=== PATIENT | male | born 1960 | race Caucasian/White ===

== ENCOUNTER → 2022-06-09 | Outpatient (CLI) | payer SELFPAY ==
[2022-06-09 09:44] LABS: BASO # 0.03 K/mm3 (0.02-0.10); EOS # 0.08 K/mm3 (0.04-0.40); EOS % 1.1 % (0.0-4.0); HEMOGLOBIN 16.2 g/dL (13.5-18.0); LYMPH# 1.43 K/mm3 (1.50-4.00); MEAN CELL VOLUME 99 fl (78-100); MEAN CORPUSCULAR HEMOGLOBIN 34 pg (27-31); MEAN CORPUSCULAR HGB CONC 35 g/dL (33-37); MEAN PLATELET VOLUME 10.1 fl (7.4-10.4); MONO # 0.74 K/mm3 (0.20-0.80); NEU # 5.29 K/mm3 (1.40-6.50); PLATELET COUNT 238 K/mm3 (130-400); RED BLOOD COUNT 4.76 M/mm3 (4.20-5.60); RED CELL DISTRIBUTION WIDTH 14.2 % (11.5-14.5); WHITE BLOOD COUNT 7.6 K/mm3 (4.8-10.8)
[2022-06-09 09:48] LABS: POTASSIUM 5.4 mmol/L (3.5-5.1)
[2022-06-09 09:49] LABS: ALBUMIN 4.5 g/dL (3.4-4.8)
[2022-06-09 09:50] LABS: CALCIUM 10.1 mg/dL (8.3-10.5)
[2022-06-09 09:51] LABS: TOTAL PROTEIN 7.7 g/dL (6.2-8.1)
[2022-06-09 09:53] LABS: TOTAL BILIRUBIN 0.9 mg/dL (0.2-1.2)
== END ==
LOC: LAB 08:28
PROVIDERS: Nurse Practitioner
DX: Z76.89 Persons encountering health services in other specified circumstances (principal); K21.9 Gastro-esophageal reflux disease without esophagitis; I10 Essential (primary) hypertension; F10.20 Alcohol dependence, uncomplicated

== ENCOUNTER 2022-12-14 09:48 | Emergency (ER) | payer SELFPAY ==
[~2022-12-14] VITALS: Ht 175.3 cm; Wt 79.1 kg
[2022-12-14 10:12] LABS: BASO # 0.03 K/mm3 (0.02-0.10); EOS # 0.09 K/mm3 (0.04-0.40); EOS % 1.6 % (0.0-4.0); HEMOGLOBIN 16.1 g/dL (13.5-18.0); LYMPH# 2.18 K/mm3 (1.50-4.00); MEAN CELL VOLUME 101 fl (78-100); MEAN CORPUSCULAR HEMOGLOBIN 34 pg (27-31); MEAN CORPUSCULAR HGB CONC 34 g/dL (33-37); MEAN PLATELET VOLUME 8.6 fl (7.4-10.4); MONO # 0.74 K/mm3 (0.20-0.80); NEU # 2.69 K/mm3 (1.40-6.50); PLATELET COUNT 172 K/mm3 (130-400); RED BLOOD COUNT 4.75 M/mm3 (4.20-5.60); RED CELL DISTRIBUTION WIDTH 14.3 % (11.5-14.5); WHITE BLOOD COUNT 5.7 K/mm3 (4.8-10.8)
[2022-12-14 10:19] LABS: ALBUMIN 3.5 g/dL (3.4-4.8); POTASSIUM 3.6 mmol/L (3.5-5.1); SODIUM 142 mmol/L (136-145)
[2022-12-14 10:20] LABS: CALCIUM 8.5 mg/dL (8.3-10.5)
[2022-12-14 10:21] LABS: GLUCOSE 104 mg/dL (75-110)
[2022-12-14 10:22] LABS: CARBON DIOXIDE 22 mmol/L (23-31); TOTAL PROTEIN 7.2 g/dL (6.2-8.1)
[2022-12-14 10:23] LABS: TOTAL BILIRUBIN 0.8 mg/dL (0.2-1.2)
[2022-12-14 10:24] LABS: ALCOHOL IN-HOUSE 293 mg/dL (<10)
[2022-12-14 10:27] LABS: AST-SGOT 74 U/L (5-34)
[2022-12-14 10:28] LABS: ALT/SGPT 31 U/L (0-55)
[2022-12-14 10:29] LABS: LIPASE 32 U/L (8-78)
[2022-12-14 10:43] LABS: TROPONIN-I < 0.030 ng/mL (<0.030)
[2022-12-14] MEDS ORDERED: MULTIVITAMIN1 EACH PO (10:47)
[2022-12-14] MEDS ORDERED: LISINOPRIL20 MG PO (10:47)
[2022-12-14] MEDS ORDERED: TOPCARE OMEPRAZ20 MG PO ×2 (10:47→10:48)
[2022-12-14] MEDS ORDERED: FOLIC ACID1 MG PO (10:47)
[2022-12-14] MEDS ORDERED: PROTONIX20 M1 PO (10:48)
[2022-12-14] MEDS ORDERED: THIAMINE HCL100 M1 PO (10:49)
[2022-12-14 11:25] LABS: PROTHROMBIN TIME 11.3 SECONDS (9.0-12.0)
[2022-12-14 12:40] LABS: URINE APPEARANCE CLEAR; URINE BILIRUBIN NEGATIVE (NEGATIVE); URINE BLOOD NEGATIVE (NEGATIVE); URINE COLOR YELLOW; URINE GLUCOSE NEGATIVE (NEGATIVE); URINE KETONE NEGATIVE (NEGATIVE); URINE LEUKOCYTE ESTERASE NEGATIVE (NEGATIVE); URINE NITRATE NEGATIVE (NEGATIVE); URINE PROTEIN(semi-quant) NEGATIVE (NEGATIVE); URINE UROBILINOGEN NORMAL (NORMAL)
[2022-12-14 12:42] LABS: URINE WBC 0-1 /hpf (0-3)
[2022-12-14 15:58] VITALS: BP 116/99
== END 2022-12-14 15:55 | disposition short-term general hospital (02) ==
LOC: ED 09:48
PROVIDERS: Nurse Practitioner
DX: S00.81XA Abrasion of other part of head, initial encounter (principal); I82.402 Acute embolism and thrombosis of unspecified deep veins of left lower extremity; F10.129 Alcohol abuse with intoxication, unspecified; I27.82 Chronic pulmonary embolism; K76.0 Fatty (change of) liver, not elsewhere classified; Z20.822 Contact with and (suspected) exposure to COVID-19; Y90.8 Blood alcohol level of 240 mg/100 ml or more; W19.XXXA Unspecified fall, initial encounter; W22.8XXA Striking against or struck by other objects, initial encounter
CPT/HCPCS: J1644; J2060; J2405; J7030; Q9967

== ENCOUNTER → 2023-01-11 | Outpatient (CLI) | payer SELFPAY ==
[~2023-01-11] MED LIST: FOLIC ACID1 MG PO; LISINOPRIL20 MG PO; MULTIVITAMIN1 EACH PO; PROTONIX20 M1 PO; THIAMINE HCL100 M1 PO; TOPCARE OMEPRAZ20 MG PO
[2023-01-11 12:58] LABS: BASO # 0.05 K/mm3 (0.02-0.10); EOS # 0.27 K/mm3 (0.04-0.40); EOS % 2.8 % (0.0-4.0); HEMATOCRIT 45.9 % (42.0-52.0); HEMOGLOBIN 14.8 g/dL (13.5-18.0); LYMPH# 2.82 K/mm3 (1.50-4.00); MEAN CELL VOLUME 101 fl (78-100); MEAN CORPUSCULAR HEMOGLOBIN 33 pg (27-31); MEAN CORPUSCULAR HGB CONC 32 g/dL (33-37); MEAN PLATELET VOLUME 9.8 fl (7.4-10.4); MONO # 0.93 K/mm3 (0.20-0.80); NEU # 5.56 K/mm3 (1.40-6.50); PLATELET COUNT 366 K/mm3 (130-400); RED BLOOD COUNT 4.56 M/mm3 (4.20-5.60); RED CELL DISTRIBUTION WIDTH 14.1 % (11.5-14.5); WHITE BLOOD COUNT 9.6 K/mm3 (4.8-10.8)
== END ==
LOC: LAB 12:08
PROVIDERS: Nurse Practitioner
DX: Z79.01 Long term (current) use of anticoagulants (principal)

== ENCOUNTER → 2023-02-13 | Outpatient (CLI) | payer SELFPAY | LOC: LAB 11:20 | DX: F10.10 Alcohol abuse, uncomplicated (principal) ==

== ENCOUNTER → 2023-03-07 | Outpatient (CLI) | payer SELFPAY ==
[2023-03-07 14:20] LABS: PROTHROMBIN TIME 12.7 SECONDS (9.0-12.0)
== END ==
LOC: LAB 13:46
PROVIDERS: Family Medicine
DX: Z79.01 Long term (current) use of anticoagulants (principal)

== ENCOUNTER → 2023-03-09 | Outpatient (CLI) | payer SELFPAY ==
[2023-03-09 11:30] LABS: BASO # 0.04 K/mm3 (0.02-0.10); EOS # 0.31 K/mm3 (0.04-0.40); EOS % 3.5 % (0.0-4.0); HEMATOCRIT 41.7 % (42.0-52.0); HEMOGLOBIN 13.6 g/dL (13.5-18.0); LYMPH# 2.34 K/mm3 (1.50-4.00); MEAN CELL VOLUME 94 fl (78-100); MEAN CORPUSCULAR HEMOGLOBIN 31 pg (27-31); MEAN CORPUSCULAR HGB CONC 33 g/dL (33-37); MEAN PLATELET VOLUME 9.7 fl (7.4-10.4); MONO # 0.91 K/mm3 (0.20-0.80); NEU # 5.27 K/mm3 (1.40-6.50); PLATELET COUNT 329 K/mm3 (130-400); RED BLOOD COUNT 4.42 M/mm3 (4.20-5.60); RED CELL DISTRIBUTION WIDTH 13.2 % (11.5-14.5); WHITE BLOOD COUNT 8.9 K/mm3 (4.8-10.8)
[2023-03-09 11:32] LABS: ALBUMIN 4.3 g/dL (3.4-4.8)
[2023-03-09 11:33] LABS: CALCIUM 9.8 mg/dL (8.3-10.5)
[2023-03-09 11:34] LABS: TOTAL PROTEIN 7.5 g/dL (6.2-8.1)
[2023-03-09 12:14] LABS: TOTAL BILIRUBIN 0.8 mg/dL (0.2-1.2)
== END ==
LOC: LAB 11:13
PROVIDERS: Nurse Practitioner
DX: L29.9 Pruritus, unspecified (principal)

== ENCOUNTER → 2023-03-14 | Outpatient (CLI) | payer SELFPAY ==
[2023-03-14 12:19] LABS: PROTHROMBIN TIME 14.6 SECONDS (9.0-12.0)
== END ==
LOC: LAB 11:47
PROVIDERS: Family Medicine
DX: Z79.01 Long term (current) use of anticoagulants (principal)

== ENCOUNTER → 2023-03-21 | Outpatient (CLI) | payer SELFPAY ==
[2023-03-21 13:33] LABS: PROTHROMBIN TIME 14.9 SECONDS (9.0-12.0)
== END ==
LOC: LAB 13:01
PROVIDERS: Family Medicine
DX: Z79.01 Long term (current) use of anticoagulants (principal)

== ENCOUNTER → 2023-03-29 | Outpatient (CLI) | payer SELFPAY ==
[2023-03-29 11:11] LABS: PROTHROMBIN TIME 34.6 SECONDS (9.0-12.0)
== END ==
LOC: LAB 10:46
PROVIDERS: Family Medicine
DX: Z79.01 Long term (current) use of anticoagulants (principal)

== ENCOUNTER → 2023-04-03 | Outpatient (CLI) | payer SELFPAY ==
[2023-04-03 12:01] LABS: PROTHROMBIN TIME 10.8 SECONDS (9.0-12.0)
== END ==
LOC: LAB 11:35
PROVIDERS: Family Medicine
DX: Z79.01 Long term (current) use of anticoagulants (principal)

== ENCOUNTER → 2023-07-07 | Outpatient (CLI) | payer MEDICAID ==
[2023-07-07 12:35] LABS: BASO # 0.02 K/mm3 (0.02-0.10); EOS # 0.09 K/mm3 (0.04-0.40); EOS % 1.1 % (0.0-4.0); HEMATOCRIT 42.4 % (42.0-52.0); LYMPH# 1.62 K/mm3 (1.50-4.00); MEAN CELL VOLUME 92 fl (78-100); MEAN CORPUSCULAR HEMOGLOBIN 30 pg (27-31); MEAN CORPUSCULAR HGB CONC 33 g/dL (33-37); MONO # 0.83 K/mm3 (0.20-0.80); NEU # 5.31 K/mm3 (1.40-6.50); PLATELET COUNT 220 K/mm3 (130-400); RED BLOOD COUNT 4.62 M/mm3 (4.20-5.60); RED CELL DISTRIBUTION WIDTH 16.6 % (11.5-14.5); WHITE BLOOD COUNT 7.9 K/mm3 (4.8-10.8)
[2023-07-07 12:42] LABS: ALBUMIN 3.9 g/dL (3.4-4.8); SODIUM 139 mmol/L (136-145)
[2023-07-07 12:43] LABS: CALCIUM 9.3 mg/dL (8.3-10.5)
[2023-07-07 12:44] LABS: GLUCOSE 90 mg/dL (75-110)
[2023-07-07 12:45] LABS: CARBON DIOXIDE 22 mmol/L (23-31)
[2023-07-07 12:46] LABS: TOTAL BILIRUBIN 0.7 mg/dL (0.2-1.2)
[2023-07-07 12:50] LABS: AST-SGOT 51 U/L (5-34)
[2023-07-07 12:51] LABS: ALT/SGPT 28 U/L (0-55); MAGNESIUM 2.08 mg/dL (1.60-2.60)
[2023-07-07 13:19] LABS: ALCOHOL IN-HOUSE < 10 mg/dL (<10)
[2023-07-07 22:29] LABS: FOLATE (FOLIC ACID) 16.7 ng/mL (2.0-20.0)
== END ==
LOC: LAB 12:12
PROVIDERS: Nurse Practitioner
DX: F10.10 Alcohol abuse, uncomplicated (principal); E55.9 Vitamin D deficiency, unspecified; R55 Syncope and collapse; R25.2 Cramp and spasm

== ENCOUNTER → 2023-08-23 | Outpatient (CLI) | payer MEDICAID ==
[2023-08-23 12:59] LABS: HEMATOCRIT 46.7 % (42.0-52.0); HEMOGLOBIN 16.1 g/dL (13.5-18.0); RED BLOOD COUNT 5.02 M/mm3 (4.20-5.60); RED CELL DISTRIBUTION WIDTH 13.5 % (11.5-14.5); WHITE BLOOD COUNT 6.6 K/mm3 (4.8-10.8)
[2023-08-23 13:13] LABS: ALBUMIN 4.2 g/dL (3.4-4.8)
[2023-08-23 13:14] LABS: SODIUM 140 mmol/L (136-145)
[2023-08-23 13:15] LABS: CALCIUM 9.1 mg/dL (8.3-10.5)
[2023-08-23 13:16] LABS: GLUCOSE 111 mg/dL (75-110); TOTAL PROTEIN 7.6 g/dL (6.2-8.1)
[2023-08-23 13:17] LABS: CARBON DIOXIDE 18 mmol/L (23-31)
[2023-08-23 13:18] LABS: TOTAL BILIRUBIN 1.9 mg/dL (0.2-1.2)
[2023-08-23 13:21] LABS: AST-SGOT 147 U/L (5-34)
[2023-08-23 13:23] LABS: ALT/SGPT 39 U/L (0-55)
[2023-08-23 13:29] LABS: D-DIMER 0.38 mg/L FEU (0.15-0.50); TROPONIN-I < 0.030 ng/mL (0.00-0.033)
[2023-08-23 13:59] LABS: LIPASE 70 U/L (8-78)
== END ==
LOC: AMSURD 12:24
PROVIDERS: Nurse Practitioner
DX: R07.9 Chest pain, unspecified (principal); R06.00 Dyspnea, unspecified; F10.10 Alcohol abuse, uncomplicated

== ENCOUNTER → 2023-09-06 | Outpatient (CLI) | payer MEDICAID ==
[2023-09-06 13:13] LABS: ALBUMIN 3.7 g/dL (3.4-4.8)
[2023-09-06 13:14] LABS: CALCIUM 8.9 mg/dL (8.3-10.5)
[2023-09-06 13:15] LABS: TOTAL PROTEIN 6.9 g/dL (6.2-8.1)
[2023-09-06 13:17] LABS: TOTAL BILIRUBIN 2.8 mg/dL (0.2-1.2)
== END ==
LOC: LAB 12:30
PROVIDERS: Nurse Practitioner
DX: E80.6 Other disorders of bilirubin metabolism (principal); M25.512 Pain in left shoulder; R06.09 Other forms of dyspnea

== ENCOUNTER → 2023-11-01 | Outpatient (CLI) | payer MEDICARE, MEDICAID ==
[2023-11-01 14:28] LABS: ALBUMIN 4.4 g/dL (3.4-4.8)
[2023-11-01 14:30] LABS: CALCIUM 9.7 mg/dL (8.3-10.5)
[2023-11-01 14:31] LABS: TOTAL PROTEIN 7.7 g/dL (6.2-8.1)
[2023-11-01 14:33] LABS: TOTAL BILIRUBIN 2.3 mg/dL (0.2-1.2)
== END ==
LOC: LAB 14:02
PROVIDERS: Nurse Practitioner
DX: E55.9 Vitamin D deficiency, unspecified (principal); F10.10 Alcohol abuse, uncomplicated

== ENCOUNTER 2023-11-14 08:31 | Outpatient (RCR) | payer MEDICARE, MEDICAID | END 2023-12-11 | disposition home or self-care (01) | LOC: PT | DX: M51.26 Other intervertebral disc displacement, lumbar region (principal) ==

== ENCOUNTER 2023-12-12 08:00 | Outpatient (RCR) | payer MEDICARE, MEDICAID ==
[2024-03-27] MEDS ORDERED: ATORVASTATIN CA20 MG PO (15:40)
[2024-03-27] MEDS ORDERED: PANTOPRAZOLE SO40 MG PO (15:40)
[2024-03-27] MEDS ORDERED: BREO ELLIPTA1 POW IH (15:40)
[2024-03-27] MEDS ORDERED: NORVASC 10MG10 MG PO (15:41)
[2024-03-27] MEDS ORDERED: ICOSAPENT ETHYL1 GM PO (15:41)
[2024-03-27] MEDS ORDERED: ELIQUIS5 MG PO (15:41)
== END 2024-01-11 | disposition home or self-care (01) ==
LOC: PT
DX: M51.26 Other intervertebral disc displacement, lumbar region (principal)

== ENCOUNTER 2024-03-27 19:46 | Inpatient (IN) | payer MEDICARE, MEDICAID ==
[~2024-03-27] VITALS: Ht 172.7 cm; Wt 87.6 kg
[~2024-03-27 19:46] MED LIST changes: +ATORVASTATIN CA20 MG PO; +BREO ELLIPTA1 POW IH; +ELIQUIS5 MG PO; +ICOSAPENT ETHYL1 GM PO; +NORVASC 10MG10 MG PO; +PANTOPRAZOLE SO40 MG PO
[2024-03-27] MEDS ORDERED: Acetaminophen 325 MG TAB PO PRN (21:00)
[2024-03-27] MEDS ORDERED: Naloxone 0.4 MG/ML VIAL IV PRN (21:00)
[2024-03-27] MEDS ORDERED: Docusate Sodium 100 MG CAP PO SCH (21:00)
[2024-03-27] MEDS ORDERED: oxyCODONE 5 MG TAB PO PRN (21:00)
[2024-03-27] MEDS ORDERED: Mag/Al Hydrox/Simeth Susp 30 ML CUP PO PRN (21:30)
[2024-03-27] MEDS ORDERED: Albuterol/Ipratropium 3 MG-0.5 MG/3 ML Neb Soln IH PRN (22:00)
[2024-03-27] MEDS ORDERED: FLUTICASON0.05 MG/Ac NS (22:53)
[2024-03-27] MEDS ORDERED: RT ALBUTEROL CC18 GM IH (22:56)
[2024-03-27 23:34] VITALS: BP 135/87
[2024-03-28] VITALS (11 sets, daily range): BP systolic 120–155; BP diastolic 69–94
[2024-03-28] LABS: PH-URINE 5.5 (5.0 - 8.0); URINE APPEARANCE CLEAR (CLEAR); URINE BILIRUBIN NEGATIVE (NEGATIVE); URINE BLOOD NEGATIVE (NEGATIVE); URINE COLOR YELLOW (YELLOW); URINE GLUCOSE 1+ (NEGATIVE); URINE KETONE 3+ (NEGATIVE); URINE LEUKOCYTE ESTERASE NEGATIVE (NEGATIVE); URINE NITRATE NEGATIVE (NEGATIVE); URINE PROTEIN(semi-quant) 1+ (NEGATIVE)
[2024-03-28 07:14] LABS: HEMATOCRIT 39.3 % (42.0-52.0); HEMOGLOBIN 13.3 g/dL (13.5-18.0); MEAN CELL VOLUME 99 fl (78-100); MEAN CORPUSCULAR HEMOGLOBIN 33 pg (27-31); MEAN CORPUSCULAR HGB CONC 34 g/dL (33-37); MEAN PLATELET VOLUME 9.1 fl (7.4-10.4); PLATELET COUNT 339 K/mm3 (130-400); RED BLOOD COUNT 3.98 M/mm3 (4.20-5.60); RED CELL DISTRIBUTION WIDTH 17.4 % (11.5-14.5); WHITE BLOOD COUNT 7.1 K/mm3 (4.8-10.8)
[2024-03-28 07:28] LABS: ALBUMIN 3.9 g/dL (3.4-4.8)
[2024-03-28 07:31] LABS: TOTAL PROTEIN 6.8 g/dL (6.2-8.1)
[2024-03-28 07:33] LABS: TOTAL BILIRUBIN 0.8 mg/dL (0.2-1.2)
[2024-03-28] MEDS ORDERED: Multivitamin TAB PO SCH (08:00)
[2024-03-28] MEDS ORDERED: Amoxicillin/Clavulanate K+ 875/125 MG TAB PO SCH (08:00)
[2024-03-28 08:06] LABS: LYMPHOCYTE 8 % (20-51); MONOCYTE 1 % (3-10); NEUTROPHILS 91 % (42-75)
[2024-03-28] MEDS ORDERED: Albuterol/Ipratropium 3 MG-0.5 MG/3 ML Neb Soln IH SCH (09:00)
[2024-03-28] MEDS ORDERED: amLODIPine 5 MG TAB PO SCH (09:00)
[2024-03-28] MEDS ORDERED: Magnesium Oxide 400 MG TAB PO SCH (09:00)
[2024-03-28] MEDS ORDERED: methylPREDNISolone Sod Succ 125 MG/2 ML VIAL IV SCH (09:00)
[2024-03-28] MEDS ORDERED: Folic Acid 1 MG TAB PO SCH (09:00)
[2024-03-28] MEDS ORDERED: Cefdinir 300 MG CAP PO SCH (09:00)
[2024-03-28] MEDS ORDERED: chlordiazePOXIDE 25 MG CAPSULE PO PRN (09:15)
[2024-03-29] VITALS (10 sets, daily range): BP systolic 113–134; BP diastolic 71–88
[2024-03-29 06:08] LABS: BASO # 0.01 K/mm3 (0.02-0.10); EOS # 0.07 K/mm3 (0.04-0.40); EOS % 0.4 % (0.0-4.0); HEMATOCRIT 37.9 % (42.0-52.0); HEMOGLOBIN 12.7 g/dL (13.5-18.0); LYMPH# 0.67 K/mm3 (1.50-4.00); MEAN CELL VOLUME 100 fl (78-100); MEAN CORPUSCULAR HEMOGLOBIN 33 pg (27-31); MEAN CORPUSCULAR HGB CONC 34 g/dL (33-37); MEAN PLATELET VOLUME 9.7 fl (7.4-10.4); MONO # 0.56 K/mm3 (0.20-0.80); NEU # 17.18 K/mm3 (1.40-6.50); PLATELET COUNT 338 K/mm3 (130-400); RED CELL DISTRIBUTION WIDTH 17.7 % (11.5-14.5); WHITE BLOOD COUNT 18.6 K/mm3 (4.8-10.8)
[2024-03-29 06:16] LABS: ALBUMIN 3.5 g/dL (3.4-4.8)
[2024-03-29 06:17] LABS: CALCIUM 8.8 mg/dL (8.3-10.5)
[2024-03-29 06:18] LABS: TOTAL PROTEIN 6.1 g/dL (6.2-8.1)
[2024-03-29 06:20] LABS: TOTAL BILIRUBIN 0.5 mg/dL (0.2-1.2)
[2024-03-29] MEDS ORDERED: Polyethylene Glycol 3350 Powder 17 GM PACKET PO SCH (09:00)
[2024-03-29] MEDS ORDERED: Fluticasone Nasal 50 MCG/Spray 16 GM BOTTLE NS SCH (11:04)
[2024-03-29] MEDS ORDERED: Cetirizine 10 MG TAB PO SCH (11:04)
[2024-03-29] MEDS ORDERED: Benzonatate 100 MG CAP PO PRN (11:30)
[2024-03-29] MEDS ORDERED: Melatonin 3 MG TAB PO SCH (20:00)
[2024-03-30 03:00] VITALS: BP 137/82
[2024-03-30 06:46] LABS: HEMATOCRIT 37.8 % (42.0-52.0); HEMOGLOBIN 12.7 g/dL (13.5-18.0); MEAN CELL VOLUME 101 fl (78-100); MEAN CORPUSCULAR HEMOGLOBIN 34 pg (27-31); MEAN CORPUSCULAR HGB CONC 34 g/dL (33-37); MEAN PLATELET VOLUME 9.7 fl (7.4-10.4); PLATELET COUNT 319 K/mm3 (130-400); RED BLOOD COUNT 3.75 M/mm3 (4.20-5.60); RED CELL DISTRIBUTION WIDTH 17.9 % (11.5-14.5); WHITE BLOOD COUNT 15.2 K/mm3 (4.8-10.8)
[2024-03-30 06:52] LABS: ALBUMIN 3.4 g/dL (3.4-4.8)
[2024-03-30 06:53] LABS: CALCIUM 8.6 mg/dL (8.3-10.5)
[2024-03-30 06:56] LABS: TOTAL BILIRUBIN 0.4 mg/dL (0.2-1.2)
[2024-03-30 07:00] VITALS: BP 125/82
[2024-03-30 08:17] LABS: BAND 3 % (0-10); LYMPHOCYTE 2 % (20-51); MONOCYTE 4 % (3-10); NEUTROPHILS 91 % (42-75)
[2024-03-30 08:18] LABS: TOXIC GRANULATION PRESENT
[2024-03-30 11:08] VITALS: BP 150/90
[2024-03-30 15:11] VITALS: BP 152/85
[2024-03-30 19:20] VITALS: BP 138/81
[2024-03-30 23:45] VITALS: BP 132/90
[2024-03-31 02:46] VITALS: BP 150/97
[2024-03-31 07:00] VITALS: BP 137/94
[2024-03-31 11:00] VITALS: BP 132/91
[2024-03-31] MEDS ORDERED: Formoterol 20 MCG,Budesonide 0.5 MG IH SCH ×2 (11:26→21:00)
[2024-03-31 11:35] LABS: EOS # 0.03 K/mm3 (0.04-0.40); EOS % 0.2 % (0.0-4.0); HEMATOCRIT 43.1 % (42.0-52.0); HEMOGLOBIN 14.2 g/dL (13.5-18.0); LYMPH# 0.67 K/mm3 (1.50-4.00); MEAN CELL VOLUME 101 fl (78-100); MEAN CORPUSCULAR HEMOGLOBIN 33 pg (27-31); MEAN CORPUSCULAR HGB CONC 33 g/dL (33-37); MEAN PLATELET VOLUME 9.9 fl (7.4-10.4); MONO # 0.74 K/mm3 (0.20-0.80); NEU # 13.19 K/mm3 (1.40-6.50); PLATELET COUNT 332 K/mm3 (130-400); RED BLOOD COUNT 4.27 M/mm3 (4.20-5.60); RED CELL DISTRIBUTION WIDTH 17.8 % (11.5-14.5); WHITE BLOOD COUNT 14.9 K/mm3 (4.8-10.8)
[2024-03-31 11:38] LABS: ALBUMIN 3.6 g/dL (3.4-4.8)
[2024-03-31 11:39] LABS: CALCIUM 8.8 mg/dL (8.3-10.5)
[2024-03-31 11:41] LABS: TOTAL PROTEIN 6.3 g/dL (6.2-8.1)
[2024-03-31 11:42] LABS: TOTAL BILIRUBIN 0.5 mg/dL (0.2-1.2)
[2024-03-31 15:00] VITALS: BP 128/85
[2024-03-31 19:20] VITALS: BP 128/78
[2024-03-31 23:29] VITALS: BP 127/85
[2024-04-01 03:36] VITALS: BP 147/94
[2024-04-01 07:05] LABS: EOS # 0.03 K/mm3 (0.04-0.40); EOS % 0.3 % (0.0-4.0); HEMATOCRIT 42.1 % (42.0-52.0); HEMOGLOBIN 13.4 g/dL (13.5-18.0); MEAN CELL VOLUME 102 fl (78-100); MEAN CORPUSCULAR HEMOGLOBIN 32 pg (27-31); MEAN CORPUSCULAR HGB CONC 32 g/dL (33-37); MEAN PLATELET VOLUME 10.2 fl (7.4-10.4); MONO # 0.84 K/mm3 (0.20-0.80); NEU # 9.54 K/mm3 (1.40-6.50); PLATELET COUNT 278 K/mm3 (130-400); RED BLOOD COUNT 4.13 M/mm3 (4.20-5.60); RED CELL DISTRIBUTION WIDTH 17.4 % (11.5-14.5); WHITE BLOOD COUNT 11.9 K/mm3 (4.8-10.8)
[2024-04-01] MEDS ORDERED: methylPREDNISolone Sod Succ 40 MG/ML VIAL IV SCH (09:00)
[2024-04-01] MEDS ORDERED: buPROPion XL (24-HR ER) 150 MG TAB PO SCH (09:15)
[2024-04-01 11:09] VITALS: BP 144/96
== END 2024-04-01 13:58 | disposition swing bed (61) | DRG 190 ==
LOC: MED/SURG 19:46
PROVIDERS: Family Medicine; Physician Assistant; ADMIT Family Medicine
DX: J44.1 Chronic obstructive pulmonary disease with (acute) exacerbation (principal); J96.01 Acute respiratory failure with hypoxia; I82.811 Embolism and thrombosis of superficial veins of right lower extremity; I10 Essential (primary) hypertension; I25.10 Atherosclerotic heart disease of native coronary artery without angina pectoris; K21.9 Gastro-esophageal reflux disease without esophagitis; R00.0 Tachycardia, unspecified; D72.829 Elevated white blood cell count, unspecified; F10.20 Alcohol dependence, uncomplicated; F32.A Depression, unspecified; R53.81 Other malaise; Y90.4 Blood alcohol level of 80-99 mg/100 ml; G89.29 Other chronic pain; Z79.01 Long term (current) use of anticoagulants; Z86.711 Personal history of pulmonary embolism; Z86.73 Personal history of transient ischemic attack (TIA), and cerebral infarction without residual deficits; Z88.8 Allergy status to other drugs, medicaments and biological substances
CPT/HCPCS: J1650; J2919; J3360

== ENCOUNTER 2024-04-01 11:49 | Inpatient (IN) | payer MEDICARE, MEDICAID ==
[~2024-04-01 11:49] MED LIST changes: +FLUTICASON0.05 MG/Ac NS; +RT ALBUTEROL CC18 GM IH
[2024-04-01] MEDS ORDERED: Acetaminophen 500 MG TAB PO PRN (13:00)
[2024-04-01] MEDS ORDERED: Benzonatate 100 MG CAP PO PRN (13:00)
[2024-04-01] MEDS ORDERED: Polyethylene Glycol 3350 Powder 17 GM PACKET PO PRN (13:00)
[2024-04-01] MEDS ORDERED: Albuterol/Ipratropium 3 MG-0.5 MG/3 ML Neb Soln IH SCH (13:00)
[2024-04-01] MEDS ORDERED: Albuterol/Ipratropium 3 MG-0.5 MG/3 ML Neb Soln IH PRN (13:00)
[2024-04-01] MEDS ORDERED: oxyCODONE 5 MG TAB PO PRN (13:15)
[2024-04-01] MEDS ORDERED: Amoxicillin/Clavulanate K+ 875/125 MG TAB PO SCH (17:00)
[2024-04-01 19:00] VITALS: BP 121/70
[2024-04-01] MEDS ORDERED: Melatonin 3 MG TAB PO SCH (20:00)
--- NOTE | 2024-04-01 20:30 | NUR ---
Patient sitting up on side of bed. Alert and oriented x 4. Denies pain. HS meds all reviewed and given. Hot chocolate given per request. States some shortness of breath later day gets. o2 on 1 lpnc.
[2024-04-01] MEDS ORDERED: Fluticasone Nasal 50 MCG/Spray 16 GM BOTTLE NS SCH (21:00)
[2024-04-01] MEDS ORDERED: Formoterol 20 MCG,Budesonide 0.5 MG IH SCH (21:00)
[2024-04-01] MEDS ORDERED: Docusate Sodium 100 MG CAP PO SCH (21:00)
--- NOTE | 2024-04-02 02:30 | NUR ---
Patient up in hallway ambulating accompanied by HOUSING PROJECT MANAGER. Gait steady. Sao2 shortly dips to 89% 1 Lpnc then 92-94%. Back to room. Reports he's slept some.
--- NOTE | 2024-04-02 03:54 | NUR ---
SAO2 95% 1LPNC.
--- NOTE | 2024-04-02 05:41 | NUR ---
Patient has been resting with eyes closed. Awakened for am med and lab into draw blood.
[2024-04-02 05:51] LABS: HEMATOCRIT 40.2 % (42.0-52.0); MEAN CELL VOLUME 102 fl (78-100); MEAN CORPUSCULAR HEMOGLOBIN 33 pg (27-31); MEAN CORPUSCULAR HGB CONC 32 g/dL (33-37); MEAN PLATELET VOLUME 9.9 fl (7.4-10.4); PLATELET COUNT 249 K/mm3 (130-400); RED BLOOD COUNT 3.93 M/mm3 (4.20-5.60); RED CELL DISTRIBUTION WIDTH 17.3 % (11.5-14.5); WHITE BLOOD COUNT 12.4 K/mm3 (4.8-10.8)
[2024-04-02 06:01] LABS: CALCIUM 8.1 mg/dL (8.3-10.5)
[2024-04-02 06:04] LABS: TOTAL BILIRUBIN 0.4 mg/dL (0.2-1.2)
[2024-04-02 06:19] LABS: LYMPHOCYTE 18 % (20-51); METAMYELOCYTE 2 % (0-0); MONOCYTE 9 % (3-10); MYELOCYTE 3 % (0-0); NEUTROPHILS 67 % (42-75)
[2024-04-02 07:00] VITALS: BP 139/96
--- NOTE | 2024-04-02 08:36 | NUR ---
PT ALERT AND ORIENTED X4, PT RESTING IN CHAIR AT THIS TIME, PT REPORTS FEELING BETTER OCCASIONAL COUGHING BUT OVERAL RESPIRATORY HAS IMPROVED. PT ASSESSED WITHOUT COMPLICATION, PT HAS DVT TO LEFT CALF AND SUPERFICIAL CLOT TO RIGHT CALF, PT RESTING IN CHAIR AT THIS TIME AND DENIES ANY FURHTER NEEDS
[2024-04-02] MEDS ORDERED: Multivitamin TAB PO SCH (09:00)
[2024-04-02] MEDS ORDERED: Folic Acid 1 MG TAB PO SCH (09:00)
[2024-04-02] MEDS ORDERED: Magnesium Oxide 400 MG TAB PO SCH (09:00)
[2024-04-02] MEDS ORDERED: Cetirizine 10 MG TAB PO SCH (09:00)
[2024-04-02] MEDS ORDERED: predniSONE 20 MG TAB PO SCH (09:00)
[2024-04-02] MEDS ORDERED: buPROPion XL (24-HR ER) 150 MG TAB PO SCH (09:00)
[2024-04-02] MEDS ORDERED: amLODIPine 5 MG TAB PO SCH (09:00)
--- NOTE | 2024-04-02 12:00 | NUR ---
PT REPORTS FEELING A LITTLE BIT BETTER TODAY, NO NEEDS EXPRESSED
--- NOTE | 2024-04-02 14:04 | NUR ---
CLINICAL PHARMACY SPECIALIST [facility] REPOR[facility] PT STATES HE HAS BEEN COUGHING UP BLOOD AND IS REPORTING CHEST PAIN
--- NOTE | 2024-04-02 14:06 | NUR ---
PROVIDER ROSALIO NOTIFIED
--- NOTE | 2024-04-02 14:17 | NUR ---
TALKED TO PT ABOUT HIS PAIN, HE REPORTS NO CHEST PAIN, JUST ABDOMEN PAIN THAT HE DISCUSSED WITH DR GARCIA THE OTHER DAY, PT REPORTS NO CHANGE IN PAIN SINCE THAT TIME.
[2024-04-02 19:00] VITALS: BP 113/79
[2024-04-03 07:30] VITALS: BP 149/95
--- NOTE | 2024-04-03 08:30 | NUR ---
PT ALERT AND ORIENTED X4, PT RESTING IN CHAIR FOR ASSESSMENT, PT REPORTS NEW PAIN TO RIGHT HIP, PT REVEALS HE BELIVES IT IS FROM LAYING ON IT WRONG WHILE IN BED, PT RATING PAIN AT 4/10. PT ASSESSED WITHOUT COMPLICATION. PT REPORTS BREATHING IS MUCH EASIER. PT NOW RESTING IN CHAIR EATING BREAKFAST, NO FURTHER NEEDS EXPRESSED AT THIS TIME
--- NOTE | 2024-04-03 11:26 | NUR ---
PT IN RADIOLOGY AT THIS TIME
--- NOTE | 2024-04-03 13:50 | NUR ---
[facility] REPORTS PT TOLD OT FABIÁN DHALIWAL THAT HE THINKS HE MAY BE "DELUSIONAL", THIS NURSE NOTIFIED MARY ATKINS
[2024-04-03] MEDS ORDERED: Pregabalin 50 MG CAP PO SCH (15:00)
--- NOTE | 2024-04-03 18:40 | NUR ---
PT REPORTS SOME DECREASE IN NERVE PAIN WITH NEW MEDICATION
[2024-04-03 19:00] VITALS: BP 122/84
--- NOTE | 2024-04-03 19:25 | NUR ---
Pt is in bed awake, a/ox4, pt denies n/v/d, pt states having pain in r thiht 4/10 in pain scale. this rn will look at mar to see what pain meds are available and apropriate for pt. pt denies any further needs. pt left in bed alarmed at lowest position with call light in reach.
--- NOTE | 2024-04-04 04:54 | NUR ---
THIS RN WAS NOTIFIED BY [facility] Smith THAT PT HAD FALLEN, IT WAS A WITNESSED FALL TO PTS KNEES, W NO INJURIES NOTED, WHEN STAFF TRIED TO STAND PT UP TO GET HIM IN BED PT HAS UNABLE TO FOLLOW COMMANDS, PT BECAME DIAPHORETIC, CLAMMY AND HIS FACE MOTTLED . PT WAS PLACEN IN BED, VITAL SIGNS WHERE BEING TAKEN BUT PT BECAME AGRESSIVE AND IMPULSIVE. MD NOTIFIED OF PT FALL AT THIS TIME. LABS WHERE ORDERED, EKG, AND ATIVAN 1MG IM WHERE ORDERED, BUT NOT GIVEN VS HAD NOT BEEN POSSIBLE TO GET D/T PT IMPULSIVITY. THIS RN WAS AT BEDSIDE DOING A POST FALL ASSESSMENT. WHEN PT WENT UNRESPONSIVE AT 0510, STERNAL RUB WAS UNSUCCESSFUL, RAPID RESPONSE WAS ACTIVATED, MD NOTIFIED CRASH CART WAS BROUGHT TO BED SIDE, PADS WHERE PLACED, AND IV LINE WAS STARTED TO DRAW BLOOD. AT 0514 KANG MD ARRIVED AT BEDSIDE, NON REBREATHER MAS AT 15L O2 WHERE STARTED, PT CONTINUED TO BE COMBATIVE UNABLE TO FOLLOW COMMANDS BUT PULSE WAS TACHY IN THE 120S. IV FLUIDS STARTED PER MD ORDERS 1L NS BOLUS. PT CONTNIUED TO BE IMPULSIVE AND COMBATIVE 1MG IM ATIVAN WAS GIVEN AT 0527. PT PT CONTNIUED TO BE UNCOOPERATIVE, AND UNABLE TO FOLLOW COMMANDS, ANOTHER DOSE OF ATIVAN 1MG IV WAS GIVEN AT 0530. LAB RESULTS CAME BACK WITH A WBC OVER 21, AND LACTIC ACID OF 11.0. EKG WAS UNREMARCABLE SO MD DX WITH SEVERE SEPSIS, AND SEPSIS PROTOCOL WAS STARTED, 1G OF ROCEPHIN IV WAS GIVEN PER MD ORDERS. SET OF VITAL SIGNS SHOWED PT HR 134, BP 108/72, 89%SPO2 ON A NON REBREATHER MASK, AND A TEMP OF 97.6. RR WAS UNABLE TO BE COUNTED D/T PTS AGITATION AT 0554 ANOTHER 1MG ATIVAN IV WAS GIVEN PER PROVIDERS ORDERS, HR 124 AND SPO2 AT 90% AT THIS TIME. AT 0555 CHEST XRAY WAS PERFORMED NO REMARKS MADE ABOUT IT BY PROVIDER AT THIS TIME. 0557 HR 122,BP 120/87, 100% SPO2 NRM. PROVIDER STEPPED OUT TO CALL FOR TRANSFER PLACEMENT. PT WAS STABLE AT THIS TIME. AFTER PLACEMENT WAS SECURED PT WAS MOVED TO ER ROOM 2 FOR INTUBATION PRIOR TO TRANSFER. AT 0630 PT ARRIVED TO ER ROOM 2, PT WAS SITUATED AND PREPARED FOR RSI PROTOCOL. BEFORE PT WAS MEDICATED AT 0657 PT HAD AN EMESIS EPISODE WITH CONFIRMED ASPIRATION, AT 0700 RSI WAS STARTED AND AT 0709 INTUBATION WAS SUCCESSFULL CONFIRMED BY COLOR CHANGE AND CXRAY. AT 0710 PULSES WHERE LOST AND CHEST COMPRESSIONS WERE STARTED. FIRST DOSE OF EPI GIVEN AT THIS TIME WELL. A TOTAL OF 6 DOSES OF EPI, 1 DOSE OF CALCIUM CHLORIDE, AND 2 SODIUM BICARBS WERE GIVEN CHEST COMPRESIONS AND ET VENTILATIONS CONTINUED UNTIL 07 WHEN WE ACHIVED ROSC. HR 132 BP 232/146,99% SPO2%, ETCO2 38.REPORT WAS GIVEN TO [facility], FOR ICU ROOM 2, 734 NOR EPI WAS STARTED BP CAME DOWN TO 88/54, HR 126, SPO2% 79%. BEGAN TRANSFER WITH EMS TEAM, KWASI WAS STARTED PRIOR TO TRNSFER.
[2024-04-04] MEDS ORDERED: NS 1,000 ML IV SCH ×2 (05:19→06:15)
[2024-04-04] MEDS ORDERED: LORazepam 2 MG/ML VIAL IV PRN (05:30)
[2024-04-04] MEDS ORDERED: cefTRIAXone 1 G in Water For Injection,Sterile 10 ML IJ ONE (05:41)
[2024-04-04 06:11] LABS: ALBUMIN 3.4 g/dL (3.4-4.8); CALCIUM 8.9 mg/dL (8.3-10.5); TOTAL BILIRUBIN 0.7 mg/dL (0.2-1.2)
[2024-04-04 06:18] LABS: HEMATOCRIT 35.8 % (42.0-52.0); HEMOGLOBIN 10.7 g/dL (13.5-18.0); MEAN CELL VOLUME 112 fl (78-100); MEAN CORPUSCULAR HEMOGLOBIN 33 pg (27-31); MEAN CORPUSCULAR HGB CONC 30 g/dL (33-37); MEAN PLATELET VOLUME 10.1 fl (7.4-10.4); PLATELET COUNT 256 K/mm3 (130-400); RED CELL DISTRIBUTION WIDTH 17.1 % (11.5-14.5); WHITE BLOOD COUNT 21.1 K/mm3 (4.8-10.8)
[2024-04-04 06:26] LABS: BAND 1 % (0-10); LYMPHOCYTE 23 % (20-51); MONOCYTE 9 % (3-10); MYELOCYTE 4 % (0-0); NEUTROPHILS 63 % (42-75)
[2024-04-04] MEDS ORDERED: Rocuronium 50 MG/5 ML Multi-Dose VIAL IV ONE (07:00)
[2024-04-04] MEDS ORDERED: Sodium Bicarbonate 8.4% 50 MEQ/50 ML VIAL IV ONE (07:12)
[2024-04-04] MEDS ORDERED: Calcium Chloride 1,000 MG (13.6 mEq)/10 ML SYRINGE IV ONE (07:17)
[2024-04-04] MEDS ORDERED: Sodium Bicarbonate 8.4% 50 MEQ/50 ML SYRINGE IV ONE (07:18)
[2024-04-04] MEDS ORDERED: Midazolam 2 MG/2 ML VIAL IV ONE (08:00)
[2024-04-04] MEDS ORDERED: fentaNYL 100 MCG/2 ML VIAL IV ONE (08:00)
[2024-04-04] MEDS ORDERED: LORazepam 2 MG/ML VIAL IM ONE (09:26)
[2024-04-04] MEDS ORDERED: EPINEPHrine 1 MG/10 ML (1:10,000) SYRINGE IV PRN (09:35)
== END 2024-04-04 08:25 | disposition short-term general hospital (02) | DRG 189 ==
LOC: MED/SURG 11:49
PROVIDERS: Family Medicine; ADMIT Family Medicine
PROC: HZ2ZZZZ Detoxification Services for Substance Abuse Treatment (ICD-10-PCS; principal; 2024-04-01)
DX: J96.01 Acute respiratory failure with hypoxia (principal); J44.1 Chronic obstructive pulmonary disease with (acute) exacerbation; I82.4Z1 Acute embolism and thrombosis of unspecified deep veins of right distal lower extremity; F10.139 Alcohol abuse with withdrawal, unspecified; I25.10 Atherosclerotic heart disease of native coronary artery without angina pectoris; K21.9 Gastro-esophageal reflux disease without esophagitis; Z86.711 Personal history of pulmonary embolism; Z79.01 Long term (current) use of anticoagulants; I10 Essential (primary) hypertension; F32.A Depression, unspecified; G89.29 Other chronic pain
CPT/HCPCS: J0171; J0696; J1650; J1836; J2060; J2250; J3010; J7030; J7060; J7512